=== PATIENT | male | born 2000 | race Caucasian/White ===

== ENCOUNTER 2024-09-23 02:09 | Emergency (ER) | payer SELFPAY ==
[~2024-09-23] VITALS: Ht 180.3 cm; Wt 99.8 kg
[2024-09-23] MEDS ORDERED: PREG300C PO (02:47)
[2024-09-23 02:58] VITALS: BP 128/80; TEMP 98; O2SAT 97
== END 2024-09-23 02:59 | disposition home or self-care (01) ==
LOC: ER 02:21
DX: G89.29 Other chronic pain (principal); M54.50 Low back pain, unspecified; Z76.0 Encounter for issue of repeat prescription; Z79.899 Other long term (current) drug therapy
CPT/HCPCS: A4606; A4663

== ENCOUNTER 2024-10-26 23:32 | Emergency (ER) | payer SELFPAY ==
[~2024-10-26] VITALS: Ht 180.3 cm; Wt 99.8 kg
[~2024-10-26 23:32] MED LIST: PREG300C PO
[2024-10-26 23:33] VITALS: O2SAT 98
== END 2024-10-27 01:00 | disposition left against medical advice (07) ==
LOC: ER 23:35
DX: Z76.0 Encounter for issue of repeat prescription (principal); Z87.39 Personal history of other diseases of the musculoskeletal system and connective tissue; Z79.899 Other long term (current) drug therapy; Z53.21 Procedure and treatment not carried out due to patient leaving prior to being seen by health care provider
CPT/HCPCS: A4606; A4663